=== PATIENT | female | born 1990 | race Caucasian/White ===

== ENCOUNTER 2021-01-03 18:06 | Emergency (ER) | payer OTHER ==
[2021-01-03 18:27] VITALS: BP 117/83; PULSE 94; TEMP 99.1; BMI 26.5
== END 2021-01-03 19:15 | disposition home or self-care (01) ==
LOC: JER 18:06
DX: O99.511 Diseases of the respiratory system complicating pregnancy, first trimester (principal); J06.9 Acute upper respiratory infection, unspecified; Z3A.13 13 weeks gestation of pregnancy
CPT/HCPCS: 99283-25; C9803; U0003; U0005

== ENCOUNTER 2022-11-20 19:40 | Emergency (ER) | payer OTHER ==
[2022-11-20 19:44] VITALS: BP 118/78; PULSE 84; RESP 18; TEMP 98.8; BMI 25.6
== END 2022-11-20 21:48 | disposition home or self-care (01) ==
LOC: JERFT 19:40
DX: R07.81 Pleurodynia (principal); W01.0XXA Fall on same level from slipping, tripping and stumbling without subsequent striking against object, initial encounter
CPT/HCPCS: 71101-TC-LT-FY; 99283-25